=== PATIENT | male | born 1995 | race Two or more races ===

== ENCOUNTER 2024-05-06 00:05 | Emergency (ER) | payer MEDICAID, SELFPAY ==
[2024-05-06 00:07] VITALS: BMI 25.2
[2024-05-06 00:15] VITALS: BP 147/80; PULSE 87; RESP 18; TEMP 37; O2SAT 97
--- NOTE | 2024-05-06 00:18 | EDNOTE_ITS ---
<Statement entered by Naa Oneill MD - 05/15/24 11:48> As co-signing physician, I was present and available for consult prn. I concur with the plan and care as documented by the midlevel provider. Upper Respiratory Inf. RME/HPI General Chief Complaint: Flu Like Symptoms Stated Complaint: COUGHED UP BLOOD TONIGHT Time Seen by Provider: 05/06/24 00:16 Source: patient Arrival date/time: 05/06/24 00:05 29-year-old male presents emergency department complaining of productive cough with red-tinged phlegm that started today. Mode of arrival: ambulatory Limitations: no limitations Related Data Previous Rx's ?Medication ?Instructions ?Recorded ibuprofen 600 mg tablet 1 tab PO Q8HR PRN ffever and pain 10/02/15 #30 tabs azithromycin 250 mg tablet See Rx Instructions PO .COMPLEX #6 05/06/24 tabs benzonatate 100 mg capsule 100 mg PO BID PRN cough #20 caps 05/06/24 Allergies Allergy/AdvReac Type Severity Reaction Status Date / Time NKA* Allergy Uncoded 10/02/15 12:24 Review of Systems Review of Systems Systems Reviewed: All systems reviewed, normal except as documented Constitutional Constitutional: Reports system reviewed and no additional complaints, except as documented, Denies body ache(s), Denies chills and Denies fever(s) Eyes Eyes: Reports system reviewed and no additional complaints, except as documented and Denies change in vision ENT Ears, Nose, Mouth, and Throat: Reports system reviewed and no additional complaints, except as documented, Denies disequilibrium, Denies dizziness, Denies sore throat and Denies vertigo Cardiovascular Cardiovascular: Reports system reviewed and no additional complaints, except as documented, Denies chest pain and Denies dyspnea Respiratory Respiratory: Reports system reviewed and no additional complaints, except as d ocumented, Denies chest congestion, Reports cough, Denies dyspnea and Reports hemoptysis Gastrointestinal Gastrointestinal: Reports system reviewed and no additional complaints, except as documented, Denies abdominal pain, Denies nausea and Denies vomiting Musculoskeletal Musculoskeletal: Reports system reviewed and no additional complaints, except as documented, Denies abnormal gait and Denies arthralgias Integumentary/Breasts Skin/Breast: Reports system reviewed and no additional complaints, except as documented, Denies erythema, Denies rash and Denies wounds Neurologic Neurologic: Reports system reviewed and no additional complaints, except as documented, Denies abnormal gait, Denies disequilibrium, Denies dizziness and Denies vertigo Past Medical History Social History SMOKING STATUS: Never smoker ED Exam General Limitations: Present no limitations General appearance: Present alert and in no apparent distress Head Head exam: Present atraumatic Eye Eye exam: Present normal appearance, PERRL and EOMI ENT ENT exam: Present normal exam, normal oropharynx and mucous membranes moist Neck Neck exam: Present normal inspection, full ROM and trachea midline Chest Chest inspection: Present normal inspection and symmetric chest wall rise Respiratory Respiratory exam: Present normal lung sounds bilaterally Cardiovascular Cardiovascular exam: Present regular rate, normal rhythm and normal heart sounds Abdominal Exam Abdominal exam: Present soft and normal bowel sounds Extremities Exam Extremities exam: Present normal inspection and full ROM Back Exam Back exam: Present normal inspection and full ROM Neurological Exam Neurological exam: Present alert, oriented X3 and CN II-XII intact Psychiatric Psychiatric exam: Present normal affect and normal mood Skin Skin exam: Present warm, dry, intact and normal color Course Quality Measures none Orders Category Date Time Status Bedside COVID-19 Antigen Test NOW Care 05/06/24 00:18 Completed Bedside Influenza A&B Antigen Test NOW Care 05/06/24 00:18 Completed XR chest 2V Stat Exams 05/06/24 00:18 Completed Strep A Rapid Stat Lab 05/06/24 00:45 Completed Vital Signs Vital signs: Vital Signs Temperature 98.6 F 05/06/24 00:15 Pulse Rate 87 05/06/24 00:15 Respiratory Rate 18 05/06/24 00:15 Blood Pressure 147/80 H 05/06/24 00:15 Pulse Oximetry (%) 97 05/06/24 00:15 Oxygen Delivery Method Room Air 05/06/24 00:15 97% RA WNL. Upper Respiratory Infection MDM Narrative MDM Narrative:: 29-year-old male presents emergency department complaining of productive cough with red-tinged phlegm that started today. XR chest suspicious pneumonia based on my interpretation. Patient data External records reviewed:: None Clinical information provided by:: patient Social determinants that could affect healthcare access:: none Patient has the following chronic illnesses:: none How is presenting disease/condition affected by chronic disease/condition?: no chronic disease Evaluation data The following diagnostics were reviewed and interpreted by me:: radiology exam(s) Lab and/or radiology exams considered but not ordered:: ordered Interpretation Summary: interpreted by me Medications / Prescriptions Medications or Prescriptions considered but not ordered:: n/a Medication administrations:: n/a Consultations Consultation(s) initiated? (list below): No Diagnosis Upper Respiratory Differential Diagnosis: upper respiratory infection, otitis media, sinusitis, viral infection, bronchitis, influenza and pharyngitis Most likely diagnosis given after review of the tests above:: pneumonia Admission Indicated Admission indicated?: not indicated Admission Request Was there a request for admission?: No Disposition Plan Disposition Plan: Discharge Discharge Attestation Discharge Attestation: The patient and all family members were given an opportunity to ask questions and understood the discharge instructions. Discharge instructions specifically effects, indications for sooner follow up or return to the emergency department, and the expected course of current diagnosis. Patient condition: Stable Discharge Plan Plan Patient Disposition: HOME (Self Care) Disposition Comment: Stable Prescriptions/Referrals Prescriptions/Med Rec: New azithromycin 250 mg tablet See Rx Instructions .ROUTE .COMPLEX Qty: 6 0RF Rx Instructions: For 250 mg dose pack: take 500 mg today (day 1), then 250 mg for 4 days (days 2-5) benzonatate 100 mg capsule 100 mg PO BID PRN (Reason: cough) Qty: 20 0RF No Action ibuprofen 600 MG tablet 1 tab PO Q8HR PRN (Reason: ffever and pain) Qty: 30 0RF Referrals: No Primary/Family,Physician [Primary Care Provider] - In 1 week Problem List Clinical Impression: Pneumonia Patient/Caregiver Discharge Instructions Discharge Activity: activity as tolerated Education Materials: ED Pneumonia (Adult) Additional Instructions: Take antibiotic as prescribed. Follow-up with primary care provider in 2 to 3 days. Return to emergency department for any worsening symptoms or as needed. Print Language: Welsh Stand Alone Forms: Beckie Award Info., Patient Portal Info Letter PA/COFFEE ROASTER Supervising Physician PA/CONNOR Supervising Physician: Dr. Oneill
--- NOTE | 2024-05-06 00:18 | XR_ITS ---
Examination: PA lateral chest 2 views Technique: Upright PA lateral chest 2 views Exam date and time: May 06, 2024 0027 hrs. Indications: Coughing today. Findings: Normal heart size No lobar pneumonia The osseous structures are intact Impression: No lobar pneumonia identified
[2024-05-06 01:18] LABS: Strep A Rapid Negative (Negative)
== END 2024-05-06 02:14 | disposition home or self-care (01) ==
PROVIDERS: Emergency Provider Emergency Medicine
DX: J18.9 Pneumonia, unspecified organism (principal)
CPT/HCPCS: 71046; 87400; 87651; 87811; 99283